=== PATIENT | female | born 2000 | race Caucasian/White ===

== ENCOUNTER 2020-01-31 00:21 | Emergency (ER) | payer BC ==
[~2020-01-31] VITALS: Ht 162.6 cm; Wt 81.8 kg
[2020-01-31 00:31] VITALS: BP 109/70; TEMP 97.8
[2020-01-31] MEDS ORDERED: WELLBUTRIN SR150 M1 PO (00:44)
[2020-01-31] MEDS ORDERED: CRUTCHES MC (01:19)
[2020-01-31 01:28] VITALS: PULSE 89
== END 2020-01-31 01:30 | disposition home or self-care (01) ==
LOC: COL.ER 00:21
DX: S93.402A Sprain of unspecified ligament of left ankle, initial encounter (principal); Z88.0 Allergy status to penicillin; X50.1XXA Overexertion from prolonged static or awkward postures, initial encounter; Y92.009 Unspecified place in unspecified non-institutional (private) residence as the place of occurrence of the external cause

== ENCOUNTER 2021-02-10 20:26 | Emergency (ER) | payer BC ==
[~2021-02-10] VITALS: Ht 162.6 cm; Wt 77.3 kg
[~2021-02-10 20:26] MED LIST: CRUTCHES MC; WELLBUTRIN SR150 M1 PO
[2021-02-10 22:21] LABS: COLLECTION METHOD CLEAN CATCH
[2021-02-10 22:33] LABS: BUDDING YEAST Present /hpf; MUCOUS Present /lpf; PH 5 (5-8); URINE APPEARANCE Cloudy; URINE BACTERIA None Seen /hpf; URINE BILIRUBIN Negative (NEGATIVE); URINE BLOOD 3+ (NEGATIVE); URINE COLOR Yellow; URINE GLUCOSE Negative (NEGATIVE); URINE KETONE Negative (NEGATIVE); URINE LEUKOCYTE ESTERASE 2+ (NEGATIVE); URINE NITRATE Positive (NEGATIVE); URINE PROTEIN(semi-quant) Negative (NEGATIVE); URINE RBC >50 /hpf; URINE UROBILINOGEN Negative (NEGATIVE)
[2021-02-10] MEDS ORDERED: MACROBID 1100 MG/CAP PO (22:37)
[2021-02-10 22:47] VITALS: BP 102/61; PULSE 61; TEMP 97
== END 2021-02-10 22:50 | disposition home or self-care (01) ==
LOC: COL.ER 20:26
PROVIDERS: Physician Assistant
DX: N30.91 Cystitis, unspecified with hematuria (principal); Z88.0 Allergy status to penicillin

== ENCOUNTER 2021-09-22 21:16 | Emergency (ER) | payer BC ==
[~2021-09-22] VITALS: Ht 162.6 cm; Wt 75.0 kg
[~2021-09-22 21:16] MED LIST changes: +MACROBID 1100 MG/CAP PO
[2021-09-22 21:27] VITALS: TEMP 97
[2021-09-22 22:39] VITALS: BP 126/70; PULSE 70
== END 2021-09-22 22:05 | disposition home or self-care (01) ==
LOC: COL.ER 21:16
DX: K64.4 Residual hemorrhoidal skin tags (principal); Z28.310 Unvaccinated for COVID-19